=== PATIENT | female | born 1955 | race Caucasian/White ===

== ENCOUNTER 2017-06-22 12:03 | Emergency (ER) | payer MEDICARE, OTHER ==
[~2017-06-22] VITALS: Ht 162.6 cm; Wt 105.0 kg
[~2017-06-22 12:03] MED LIST: ACET-2047 PO; ATEN50TA PO; ATOR10TA65 PO; BISA10SU58 PR; CEPASTAT MT; CHOL2000 PO; CLOT30CR24 TOP; CYCL-319 PO; DILT60CA PO; DOCU-144 PO; DULO60CA6 PO; FER325 PO; FOLI-49 PO; FURO40TA4 PO; HYDR-3012 PO; LANT3I SC; LEVO300T5 PO; LIDO30JE5 TOP; LORA-441 PO; MAGN400O4 PO; NOVO3I SC; OMEP20CA16 PO; OXYC-284 PO; OXYC5CAP17 PO; TOPI-25 PO; TRAM-40 PO; UDROBDM PO
[2017-06-22 12:07] VITALS: Ht 162.6 cm; Wt 105.0 kg
[2017-06-22] MEDS ORDERED: GRIS500T6 PO (12:49)
--- NOTE | 2017-06-22 13:22 | ERD ---
ER Documentation Chief Complaint Date/Time DATE: 06/22/17 TIME: 13:14 Chief Complaint rash/fungal infection x 4 days HPI 62-year-old female coming in complaining of rash in groin area 2 days. Patient was discharged 2 days ago from a nursing facility after 1 year of wound care treatment. Patient states she had a wound on her foot which has been corrected. Patient is currently living in independent care. Patient is using nystatin cream on rash within groin. Feels that rash is worsening as she does not have warm water at the facility she is living and is unable to cleanse. Patient denies fever. Denies abdominal pain. ROS All systems reviewed and are negative except as per history of present illness. Medications Home Meds Active Scripts Griseofulvin,microsize (Griseofulvin) 500 Mg Tablet, 1000 MG PO DAILY for 28 Days, #28 TAB Prov:CHYNA MANCERA PA-C 06/22/17 Clotrimazole* (Clotrimazole* AF) 1% - 30 Gm Cream.gm., 1 APPLIC TOP BID for 7 Days, TUB Prov:SHANNON ZAFAR MD 10/15/15 Reported Medications Cholecalciferol* (Vitamin D3*) 2,000 Unit Cap, 2000 UNIT PO DAILY, CAP 10/15/15 Tramadol Hcl* (Ultram*) 50 Mg Tablet, 50 MG PO Q8 Y for PAIN, TAB 10/15/15 Topiramate* (Topiramate*) 100 Mg Tablet, 100 MG PO QHS, TAB 10/15/15 Throat Lozenges* (Cepastat*) 9 Venancio Lozenge, 1 LOZENGE MT Q4 Y, LOZENGE 10/15/15 Guaifenesin-Dextromethorphan* (Robitussin* DM) 100MG/10MG/5ML Syrup, 10 ML PO Q4H Y for COUGH, ML 10/15/15 Oxycodone Hcl-Acetaminophen* (Percocet*) 10-325 Mg Tablet, 1 TAB PO Q4H Y for SEVERE PAIN LEVEL 7-10, TAB 10/15/15 Oxycodone Hcl* (IR) (Oxycodone Hcl*) 5 Mg Capsule, 10 MG PO Q12 Y for PAIN, CAP 10/15/15 Insulin Aspart* (Novolog Insulin Pen*) 100 Unit/Ml Soln, 0 SC .SLIDING SCALE ACHS, EA 10/15/15 Magnesium Hydroxide* (Milk Of Magnesia*) 400 Mg/5 Ml Oral.susp, 30 ML PO Q24H Y for CONSTIPATION, ML 10/15/15 Lidocaine 2% Jelly* (Xylocaine 2% Jelly*) 1 Applic Jel, 1 APPLIC TOP Q12, TUB 10/15/15 Levothyroxine Sodium* (Levothyroxine Sodium*) 300 Mcg Tablet, 300 MCG PO AC BREAKFAST, TAB 10/15/15 Furosemide* (Furosemide*) 40 Mg Tablet, 40 MG PO BID, TAB 10/15/15 Cyclobenzaprine Hcl* (Cyclobenzaprine Hcl*) 10 Mg Tablet, 10 MG PO TID Y for MUSCLE SPASMS, TAB 10/15/15 Insulin Glargine* (Lantus*) 100 Unit/Ml Soln, 60 UNIT SC HS, EA 07/31/14 Omeprazole* (Omeprazole*) 20 Mg Capsule.dr, 20 MG PO DAILY, CAP 07/31/14 Hydroxyzine Hcl* (Hydroxyzine Hcl*) 50 Mg Tablet, 50 MG PO Q8, TAB 07/31/14 Ferrous Sulfate* (Ferrous Sulfate*) 325 Mg Tabec, 325 MG PO DAILY, TAB 07/31/14 Bisacodyl* (Dulcolax*) 10 Mg/Supp.rect Supp.rect, 10 MG NJ Q24H Y for CONSTIPATION, SUPP.RECT 07/31/14 Docusate Sodium* (Colace*) 100 Mg Capsule, 100 MG PO DAILY, CAP 07/31/14 Diltiazem Hcl (Diltiazem Er) 60 Mg Cap.sr.12h, 30 MG PO Q8 HOLD FOR SBP LESS THAN 110 07/31/14 Lorazepam* (Ativan*) 0.5 Mg Tablet, 0.5 MG PO Q8 Y for ANXIETY, TAB 07/31/14 Atenolol* (Atenolol*) 50 Mg Tablet, 50 MG PO BID, TAB HOLD IF SBP IS LESS THAN 110 07/31/14 Acetaminophen* (Acetaminophen*) 650 Mg Tablet, 650 MG PO Q4H Y for PAIN AND OR ELEVATED TEMP, TAB 07/31/14 Duloxetine Hcl* (Cymbalta*) 60 Mg Capsule.dr, 60 MG PO BID 03/27/14 Atorvastatin (Atorvastatin) 10 Mg Tablet, 10 MG PO DAILY, TAB 03/27/14 Folic Acid* (Folic Acid*) 1 Mg Tablet, 1 MG PO DAILY, TAB 03/27/14 Allergies Allergies: Coded Allergies: methotrexate (Verified Allergy, Intermediate, skin peels, 06/22/17) PMhx/Soc History of Surgery: Yes (right hip implant;) Anesthesia Reaction: No Hx Neurological Disorder: Yes (neuropathy) Hx Respiratory Disorders: Yes (pna, bronchitis;) Hx Cardiac Disorders: Yes (htn;) Hx Psychiatric Problems: No Hx Miscellaneous Medical Probl: Yes Hx Alcohol Use: No Hx Substance Use: No Hx Tobacco Use: No Smoking Status: Never smoker Physical Exam Vitals Vital Signs Date Time Temp Pulse Resp B/P Pulse Ox O2 Delivery O2 Flow Rate FiO2 06/22/17 12:07 99.2 82 20 148/63 97 Physical Exam Resp: Clear to auscultation bilaterally Cardio: Regular rate and rhythm, no murmurs Abd: Soft, non tender, non distended. Normal bowel sounds Skin: Large spread red beefy irregular border rash within groin. No induration. No lymphatic streaking. No purulent discharge. Superficial. No bleeding. Procedures/MDM ER Course: Wound cleaned in the ER. dried and dressing applied. MDM: 62-year-old female coming in complaining with rash to groin area. I have low suspicion for necrotizing fasciitis. Vital signs are stable and rash is indicative of fungal infection with beefy red edges and irregular edges. There is no degloving of the skin. I have a suspicion for cellulitic infection. There is no induration or purulence felt under the skin. Patient's vital signs are stable. A low suspicion for lymphatic infection as there is no lymphatic streaking. Patient is nontoxic appearing. A low suspicion for sepsis. Patient 's rash appears to be fungal in nature and she will be discharged with oral medication, as she is only using topical medications at this time. I recommended patient to return to the ER if symptoms change or worsen. I also recommended patient have close follow-up with primary doctor in 1-2 days. Departure Diagnosis: Primary Impression: Tinea corporis Condition: Stable Patient Instructions: Tinea Corporis Additional Instructions: FOLLOW UP WITH YOUR PRIMARY CARE PHYSICIAN TOMORROW.Return to this facility if you are not improving as expected. CHYNA MANCERA PA-C Jun 22, 2017 13:22
== END 2017-06-22 13:05 | disposition home or self-care (01) ==
LOC: FTE 12:03
DX: B35.4 Tinea corporis (principal); I10 Essential (primary) hypertension; E11.9 Type 2 diabetes mellitus without complications; Z96.641 Presence of right artificial hip joint; Z79.4 Long term (current) use of insulin
CPT/HCPCS: 99283

== ENCOUNTER 2017-09-24 12:40 | Emergency (ER) | END 2017-09-24 15:08 | disposition home or self-care (01) | DX: M25.561 Pain in right knee (principal); E11.9 Type 2 diabetes mellitus without complications; I10 Essential (primary) hypertension; Z79.4 Long term (current) use of insulin ==

== ENCOUNTER 2017-12-16 18:05 | Emergency (ER) | END 2017-12-17 03:33 | disposition home or self-care (01) ==

== ENCOUNTER 2017-12-24 16:18 | Emergency (ER) | END 2017-12-25 01:38 | disposition home or self-care (01) ==

== ENCOUNTER 2019-02-19 13:27 | Emergency (ER) | payer MEDICARE ==
[~2019-02-19] VITALS: Ht 162.6 cm; Wt 88.6 kg
[~2019-02-19 13:27] MED LIST changes: +ASPI-535 PO; -ATEN50TA PO; -BISA10SU58 PR; -CHOL2000 PO; +CIPR500T4 PO; -CLOT30CR24 TOP; -CYCL-319 PO; -DILT60CA PO; +FAMO40TA5 PO; -FER325 PO; -FURO40TA4 PO; -HYDR-3012 PO; +HYDR-4011 PO; +MAGN400O19 PO; -MAGN400O4 PO; -OMEP20CA16 PO; -OXYC-284 PO; -OXYC5CAP17 PO; -TOPI-25 PO; +TOPI100T11 PO; -TRAM-40 PO; +TRAM50TA2 PO; -UDROBDM PO
[2019-02-19 13:35] VITALS: Ht 162.6 cm; Wt 88.6 kg
[2019-02-19] MEDS ORDERED: ACETAMINOPHEN 500 MG TAB PO STA (14:34)
[2019-02-19] MEDS ORDERED: PHEN-538 PO (14:41)
[2019-02-19] MEDS ORDERED: CEPH-443 PO (14:41)
--- NOTE | 2019-02-19 14:46 | ERD ---
ER Documentation Chief Complaint Chief Complaint c/o urinary frequency and unable to hold urine HPI 63-year-old female presents with urinary frequency and urge incontinence for the last 3 days. She denies fevers, vomiting. She has chronic left abdominal wall pain due to incisional hernia for last 2 years. She had unspecified surgery 2 years ago for what she says is a "split" in her stomach. She is scheduled for evaluation for surgery with her primary doctor and general surgeon. ROS All systems reviewed and are negative except as per history of present illness. Medications Home Meds Active Scripts Phenazopyridine Hcl* (Pyridium*) 200 Mg Tab, 200 MG PO TID PRN for URINARY PAIN, #6 TAB Prov:DEANN JIMENEZ MD 02/19/19 Cephalexin* (Keflex*) 500 Mg Capsule, 500 MG PO QID for 5 Days, CAP Prov:DEANN JIMENEZ MD 02/19/19 Hydrocodone/Acetaminophen ([place] 5-325 Tablet) 1 Each Tablet, 1 EACH PO Q6, #14 TAB Prov:TIM MELARA DO 12/25/17 Tramadol HCl (Tramadol HCl) 50 Mg Tablet, 50 MG PO Q6 PRN for PAIN, #10 TAB Prov:JESSA ROWLAND MD 12/17/17 Ciprofloxacin Hcl* (Ciprofloxacin Hcl*) 500 Mg Tablet, 500 MG PO BID for 7 Days, TAB Prov:JESSA ROWLAND MD 12/17/17 Reported Medications Famotidine* (Famotidine*) 40 Mg Tablet, 40 MG PO DAILY, #60 TAB 12/17/17 Aspirin Ec (Aspir 81) 81 Mg Tablet.dr, 81 MG PO DAILY, #30 TAB 12/17/17 Topiramate* (Topiramate*) 100 Mg Tablet, 100 MG PO QHS, TAB 10/15/15 Throat Lozenges* (Cepastat*) 9 Venancio Lozenge, 1 LOZENGE MT Q4 PRN, LOZENGE 10/15/15 Insulin Aspart* (Novolog Insulin Pen*) 100 Unit/Ml Soln, 0 SC .SLIDING SCALE ACHS, EA 10/15/15 Magnesium Hydroxide* (Milk Of Magnesia*) 400 Mg/5 Ml Oral.susp, 30 ML PO Q24H PRN for CONSTIPATION, ML 10/15/15 Lidocaine 2% Jelly* (Xylocaine 2% Jelly*) 1 Applic Jel, 1 APPLIC TOP Q12, TUB 10/15/15 Levothyroxine Sodium* (Levothyroxine Sodium*) 300 Mcg Tablet, 300 MCG PO AC BREAKFAST, TAB 10/15/15 Insulin Glargine* (Lantus*) 100 Unit/Ml Soln, 32 UNIT SC HS, EA 07/31/14 Docusate Sodium* (Colace*) 100 Mg Capsule, 100 MG PO DAILY, CAP 07/31/14 Lorazepam* (Ativan*) 0.5 Mg Tablet, 0.5 MG PO Q8 PRN for ANXIETY, TAB 07/31/14 Acetaminophen* (Acetaminophen*) 650 Mg Tablet, 650 MG PO Q4H PRN for PAIN AND OR ELEVATED TEMP, TAB 07/31/14 Duloxetine Hcl* (Cymbalta*) 60 Mg Capsule.dr, 60 MG PO BID 03/27/14 Atorvastatin (Atorvastatin) 10 Mg Tablet, 10 MG PO DAILY, TAB 03/27/14 Folic Acid* (Folic Acid*) 1 Mg Tablet, 1 MG PO DAILY, TAB 03/27/14 Allergies Allergies: Coded Allergies: methotrexate (Unverified Allergy, Intermediate, skin peels, 12/17/17) pregabalin (Unverified Allergy, Intermediate, blurry vission; sob, 12/17/17) PMhx/Soc History of Surgery: Yes (colon, lian, RLE ) Anesthesia Reaction: No Hx Neurological Disorder: Yes (BLE neuropathy) Hx Respiratory Disorders: Yes (pna, bronchitis;) Hx Cardiac Disorders: Yes (SC, HTN) Hx Psychiatric Problems: No Hx Miscellaneous Medical Probl: Yes (DM II, hypothyroidism, nec fasc, ) Hx Alcohol Use: Yes (18 years ago) Hx Substance Use: Yes (18 years ago) Hx Tobacco Use: Yes (18 years ago) FmHx Family History: No diabetes, No coronary disease, No other Physical Exam Vitals Vital Signs Date Temp Pulse Resp B/P (MAP) Pulse Ox O2 O2 Flow FiO2 Time Delivery Rate 02/19/19 99.5 109 20 128/75 94 13:35 (92) Physical Exam Const: No acute distress Head: Atraumatic Eyes: Normal Conjunctiva ENT: Normal External Ears, Nose and Mouth. Neck: Full range of motion. No meningismus. Resp: Clear to auscultation bilaterally Cardio: Regular rate and rhythm, no murmurs Abd: Soft, non tender, non distended. Normal bowel sounds. Patient has an incisional hernia in the left abdomen without warmth, erythema, tenderness or masses. It is spontaneously reducible without signs of incarceration or circulation. Skin: No petechiae or rashes Back: No midline or flank tenderness Ext: No cyanosis, or edema Neur: Awake and alert Psych: Normal Mood and Affect Results 24 hrs Laboratory Tests Test 02/19/19 14:15 Urine Color YELLOW Urine Clarity SLIGHTLY CLOUDY Urine pH 5.0 Urine Specific [place] 1.024 Urine Ketones 1+ mg/dL Urine Nitrite NEGATIVE mg/dL Urine Bilirubin NEGATIVE mg/dL Urine Urobilinogen 1+ mg/dL Urine Leukocyte Esterase 3+ Lori/ul Urine Microscopic RBC 3 /HPF Urine Microscopic WBC 79 /HPF Urine Squamous Epithelial Cells FEW /HPF Urine Hemoglobin 1+ mg/dL Urine Glucose 3+ mg/dL Urine Total Protein 1+ mg/dl Current Medications Medications Dose Sig/Shavon Start Time Status Last (Trade) Ordered Route PRN Stop Time Admin Dose Reason Admin Cephalexin 500 mg ONCE ONCE 02/19/19 (Keflex) PO 15:00 02/19/19 15:01 200 mg ONCE ONCE 02/19/19 Phenazopyridi PO 15:00 02/19/19 ne HCl 15:01 (Pyridium) 500 mg ONCE STAT 02/19/19 DC Acetaminophen PO 14:34 02/19/19 (Tylenol 14:37 Tab) Procedures/MDM Shows leukocyte esterase, white blood cells, ketones and glucose. Patient does not has signs and symptoms to suggest ketoacidosis. Departure Diagnosis: Primary Impression: Genitourinary symptoms Additional Impression: UTI (urinary tract infection) Urinary tract infection type: acute cystitis Hematuria presence: without hematuria Qualified Codes: N30.00 - Acute cystitis without hematuria Condition: Stable Patient Instructions: Urinary Tract Infections in Women Referrals: NINI MORGAN MD (PCP) Additional Instructions: Urine shows signs of infection, likely cause of symptoms. Recheck for fevers, vomiting, worsening abdominal pain, new worsening symptoms. See surgeon and primary doctor as scheduled. DEANN JIMENEZ MD Feb 19, 2019 14:46
[2019-02-19] MEDS ORDERED: CEPHALEXIN 500 MG CAP PO ONE (15:00)
[2019-02-19] MEDS ORDERED: PHENAZOPYRIDINE 100 MG TAB PO ONE (15:00)
[2019-02-19] MEDS ORDERED: SOD CHLORIDE 0.9% 1,000 ML IV STA (15:05)
[2019-02-19] MEDS ORDERED: CEFTRIAXONE 1 GM/50 ML (PMX) 50 ML IVPB STA (15:05)
[2019-02-19] MEDS ORDERED: INSULIN LISPRO 100 UNIT/ML VIAL SC ONE (15:30)
[2019-02-19] MEDS ORDERED: SOD CHLORIDE 0.9% 1,000 ML IV ONE (18:06)
[2019-02-19] MEDS ORDERED: HYDROCODONE/APAP (5/325) TAB PO ONE (18:30)
[2019-02-19 20:08] VITALS: BP 169/72; PULSE 78; RESP 18
== END 2019-02-19 20:10 | disposition home or self-care (01) ==
LOC: FTE 13:27
DX: R39.89 Other symptoms and signs involving the genitourinary system (principal); N30.00 Acute cystitis without hematuria; E11.9 Type 2 diabetes mellitus without complications; I10 Essential (primary) hypertension; I25.2 Old myocardial infarction; E03.9 Hypothyroidism, unspecified; Z79.4 Long term (current) use of insulin; Z87.891 Personal history of nicotine dependence; Z79.82 Long term (current) use of aspirin
CPT/HCPCS: 36415; 80053; 81001; 82962; 85025; 87086; 96361; 96365; 96372; 99284; J0696; J1815; J7030

== ENCOUNTER 2019-04-19 05:41 | Inpatient (IN) | payer MEDICARE ==
[2019-04-19] VITALS (42 sets, daily range): BP systolic 87–154; BP diastolic 39–88; PULSE 56–75; RESP 11–24; Ht 152.4 cm; Wt 84.3 kg
[~2019-04-19] VITALS: Ht 152.4 cm; Wt 84.3 kg
[~2019-04-19 05:41] MED LIST changes: +CEPH-443 PO; +PHEN-538 PO
[2019-04-19] MEDS ORDERED: SOD CHLORIDE 0.9% 1,000 ML IV SCH (06:00)
[2019-04-19] MEDS ORDERED: INSU100I33 SC (07:11)
[2019-04-19] MEDS ORDERED: METO-448 PO (07:14)
[2019-04-19] MEDS ORDERED: OXYB5TAB22 PO (07:14)
[2019-04-19] MEDS ORDERED: FAMO40TA5 PO (07:15)
[2019-04-19] MEDS ORDERED: ATOR10TA65 PO (07:16)
[2019-04-19] MEDS ORDERED: LEVO200T45 PO (07:16)
[2019-04-19] MEDS ORDERED: TRAZ150T65 PO (07:17)
[2019-04-19] MEDS ORDERED: TOPI100T11 PO (07:17)
[2019-04-19] MEDS ORDERED: DULO60CA6 PO (07:18)
[2019-04-19] MEDS ORDERED: METF500T3 PO (07:18)
[2019-04-19] MEDS ORDERED: FENTAnyl 50 MCG/ML VIAL ONE ×2 (07:40→08:11)
[2019-04-19] MEDS ORDERED: MIDAZOLAM 1 MG/ML 2 ML INJ ONE ×2 (07:41→08:12)
[2019-04-19] MEDS ORDERED: INSULIN REGULAR, HUMAN 100 UNIT/1 ML 3ML VIAL SC SCH (08:00)
[2019-04-19] MEDS ORDERED: BIVALIRUDIN 250MG /NS 50 ML 50 ML IVPB ONE (08:08)
[2019-04-19] MEDS ORDERED: VERAPAMIL 5 MG INJ ONE (08:19)
[2019-04-19] MEDS ORDERED: NITROGLYCERIN (IC) 100 MCG/ML INJ ONE (08:19)
[2019-04-19] MEDS ORDERED: CLOPIDOGREL 300 MG TAB ONE (08:40)
[2019-04-19] MEDS ORDERED: ASPIRIN 81 MG TAB ONE (08:41)
[2019-04-19] MEDS ORDERED: LIDOCAINE 1% (MDV) 20 ML INJ ONE (08:49)
[2019-04-19] MEDS ORDERED: IODIXANOL LOCM 100 ML BTL ONE (08:53)
[2019-04-19] MEDS: METOPROLOL 25 MG TAB PO SCH ×2 (09:00→20:37)
[2019-04-19] MEDS: CLOPIDOGREL 75 MG TAB PO SCH (09:00)
[2019-04-19] MEDS: ASPIRIN (EC) 81 MG TAB PO SCH (09:00)
--- NOTE | 2019-04-19 09:05 | OPR ---
Date/Time of Note Date/Time of Note DATE: 04/19/19 TIME: 08:58 Operative Report Procedure Date: Apr 19, 2019 Preoperative Diagnosis angina. markedly abnormal stress test showing large LAD ischemia Postoperative Diagnosis SAME Operation/Procedure Performed PCI LAD Surgeon see signature line Secretary Receptionist Justin Anesthesia Type: moderate sedation Estimated Blood Loss: minimal Transfusion none Specimen none Grafts/Implants none Complications none Procedure Description Transmission Tester: Mckenzie Martin MD Indication: 63-year-old female with multiple complicated medical history who was recommended to undergo diagnostic angiography and possible PCI for recurrent chest pain markedly abnormal stress test showing LAD ischemia. Patient also needed to be evaluated for cardiovascular preop evaluation for hernia surgery Procure performed: #1 left heart catheterization and selective right and left coronary angiogram #2 Right femoral angiogram and closure using a Perclose device 3. Successful PTCA and stenting of mid into the proximal left anterior descending artery using a 2.5 x 60 mm Synergy drug-eluting stent and a 2.25 x 20 mm Synergy drug-eluting stent in the mid to distal LAD. 4. Moderate sedation for more than 60 minutes Findings: 1. Left main: is normal and birfurcates to LAD & LCX. 2. LAD: has 70 % stenosis at the distal portion of proximal LAD, and 95 % stenosis at the very proximal portion of mid LAD. Mid LAD becomes very small. There is a 80% calcified lesion noted after the initial lesion. After successful PCI of this lesion no significant residual stenosis left. 3. Left circumflex artery: is nondominant. it has 40 % calcified distal stenosis 4. RCA: is large calcified and dominant. it has 30 % mid stenosis and 40% distal stenosis. PDA is very large with about 50% stenosis. 5. LV: 124/8. Aortic pressure by pull back: 127/53 6. Right femoral angiogram shows patent common femoral artery, however proximal area of the right SFA appears to have heavily calcified 95% lesion Procedure in detail: Written informed consent with obtained after risks benefits and alternatives discussed with the patient in detail. risks including but not limited to risk of infection vascular complications, bleeding complications, IN stroke arrhythmia renal failure at even were discussed with the patient in detail. Patient was brought into the cardiac laboratory miller and placed in supine position. Right and left groin area was prepped and draped in regular sterile fashion and then he was in anesthetized using 1% lidocaine. Right femoral artery was cannulated and using modified seldinger technique a 5 Gu[place] sheath was placed in the femoral artery. Femoral angiogram was performed JL4 guiding catheter was advanced to engage the left main coronary artery angiographic view was obtained. JR4 catheter was advanced and engaged into the right coronary artery and angiographic view was obtained. Then a JR4 was advanced to engage the left ventricle hemodynamics as recorded by pullback aortic pressure was measured. At this time we decided to perform PCI of the left anterior descending artery. She was removed and Perclose was used to preclosed. A 6 [place] sheath was placed right femoral artery. A JL 3-/2 guiding catheter was advanced to engage the left main coronary artery. MW wire was used and advanced across the lesion and placed distal to the lesion. I used a 2.5 x 12 balloon which was placed across the lesion and predilated the vessel. Then I used a 2.25 x 20 mm Synergy drug-eluting stent which was placed across the lesion into the distal portion of the mid LAD and deployed at 12 Ricarda. Then another 2.5 x 60 mm Synergy drug- eluting stent was placed at the proximal portion of the mid LAD into the distal portion of the proximal LAD. It was deployed at 14 ricarda. Finally a 2.75 x 8 mm noncompliant balloon was used and postdilated the stent and up to 20 Ricarda. Final angiographic view was obtained which showed MIL-3 flow no evidence of dissection and no significant residual stenosis at the site of the stent. 2 Perclose was successfully deployed. Patient tolerated the procedure well with no complication. Patient is to be transferred to recovery room in stable condition. contrast used: 70 cc Visipaque Conclusions: Successful PTCA stenting of the left anterior descending artery from 95% stenosis to no significant residual stenosis using a 2.25 x 20 and 2.5 x 60 mm Synergy drug-eluting stent. Recommendations: Aggressive medical therapy. aspirin indefinitely dual antiplatlet therapy with aspirin and Plavix MCKENZIE MARTIN MD [facility] MCKENZIE MARTIN MD Apr 19, 2019 09:04
[2019-04-19] MEDS ORDERED: DEXTROSE 50% 50 ML SYRINGE IV PRN ×2 (09:30)
[2019-04-19] MEDS ORDERED: GLUCAGON 1 MG INJ IM PRN (09:30)
[2019-04-19] MEDS ORDERED: GLUCOSE GEL 15 GRAM TUBE PO PRN ×2 (09:30)
[2019-04-19] MEDS ORDERED: GLUCOSE GEL 15 GRAM TUBE BUCCAL PRN (09:30)
[2019-04-19] MEDS: morphine 2 MG INJ IV PRN ×4 (09:38→20:30)
[2019-04-19] MEDS: SOD CHLORIDE 0.9% 1,000 ML IV SCH ×2 (09:38→11:50)
[2019-04-19] MEDS: TOPIRAMATE 100 MG TAB PO SCH (11:52)
[2019-04-19] MEDS: DULOXETINE 30 MG CAP DR PO SCH (11:52)
[2019-04-19] MEDS: OXYBUTYNIN (XL) 5 MG TAB PO SCH (11:53)
[2019-04-19] MEDS: INSULIN ASPART [NOVOLOG] 3 ML PEN SC SCH ×3 (12:02→20:47)
--- NOTE | 2019-04-19 16:21 | HP ---
DATE OF ADMISSION: 04/19/2019 REASON FOR ADMISSION: Coronary artery disease, status post PCI of the LAD. HISTORY OF PRESENT ILLNESS: The patient is a 63-year-old obese female with history of diab etes mellitus, atrial flutter, CKD, anemia, hypothyroidism, abdominal hernia, anxiety disorder, const ipation, overactive bladder, insomnia, peripheral vascular disease, dyslipidemia, hyperuricemia, and osteoarthritis who has been battling a lower abdominal hernia, which is very bothersome to her. She was recommended to lose weight prior to possible surgery. Upon evaluation in my office, referred to Dr. Martin for cardiac clearance due to her multiple medical issues. The patient was possible found to have a positive stress test and underwent today a cardiac angiogram by Dr. Mckenzie Martin. The find ings revealed left main is normal, LAD had 70% stenosis in the distal portion of the proximal LAD, a 95% stenosis of the proximal portion of the mid-LAD, and the mid-LAD becomes very small. There is 80 % calcific lesion noted after the initial lesion. A PCI was done. Other vessels: Left circumflex a rtery is nondominant, 40% calcified distal stenosis. RCA is large, calcified, dominant, has 30% mid stenosis, 40% distal stenosis. The PDA is very large, with about 50% stenosis. Right femoral angiog filiberto showed patent common femoral artery of approximately ____. The right SFA appears to have heavily calcified 95% lesion. Ultimately, the patient underwent PCI of the LAD. The patient tolerated the procedure well, now transferred to the recovery room. The patient will be admitted overnight to the intensive care unit for monitoring. This was done via right femoral approach. Currently, sugars are slightly high in the 300s, the patient overall doing well. PAST MEDICAL HISTORY: Includes coronary artery disease, diabetes mellitus, hypertension, dyslipidemi a, hypothyroidism, anemia, CKD, history of MRSA pneumonia, diabetes mellitus, atrial flutter, SURGICAL HISTORY: None. ALLERGIES: METHOTREXATE AND PREGABALIN. FAMILY HISTORY: Unknown. SOCIAL HISTORY: No history of tobacco, alcohol, or IV drug use. MEDICATIONS: The patient's home medications include: 1. Atorvastatin 10 mg at bedtime. 2. Metoprolol 25 b.i.d. 3. Duloxetine 60 daily. 4. Topiramate 100 daily. 5. Trazodone 150 at bedtime. 6. Pepcid 40 at bedtime. 7. Insulin Lantus as directed. 8. Synthroid or Levoxyl 200 mcg daily. 9. Metformin 500 b.i.d. 10. Ditropan XL 5 mg daily. The list that I have actually from my office are as follows: 1. Colace 100 b.i.d. 2. Metoprolol tartrate 25 b.i.d. 3. Oxybutynin 5 mg b.i.d. 4. Trazodone 100 at bedtime. 5. Folic acid 1 mg daily. 6. Lasix 20 mg daily. 7. Myrbetriq 50 daily. 8. Atorvastatin 10 mg at bedtime. 9. Allopurinol 100 mg daily. 10. Pepcid 40 daily. 11. Vitamin D3 5000 daily. 12. Cymbalta 60 mg daily. 13. Metformin 500 b.i.d. 14. Aspirin 81 mg daily. 15. Topiramate 100 at bedtime. 16. Meloxicam 7.5 daily. 17. Synthroid 200 mcg daily. PHYSICAL EXAMINATION: VITAL SIGNS: Temperature is 98.6, pulse is 56, respirations 17, blood pressure 109/49, saturation 10 0%. GENERAL: No acute distress. HEENT: Normocephalic, atraumatic, pale. CARDIOVASCULAR: S1, S2, regular rate. LUNGS: Clear. ABDOMEN: Soft. She has a midabdominal scar and a hernia protruding in the left lower abdomen. Righ t groin area: Appears to be in no significant hematoma. That is where she had her angio site. EXTREMITIES: There is no clubbing, cyanosis, or edema. The patient is moving all extremities. LABORATORY DATA: White count is 9.8, hemoglobin 13.9, hematocrit 42, platelet count of 162. Neutrop hils 78%, lymphocytes 13%. Chemistry: Sodium is 139, potassium 4.9, chloride 104, bicarbonate 25, BUN is 30, creatinine 1.54, and glucose of 357. Last glucose levels 330, 376 and 376. Troponin this morning was slightly at 0.128. Triglycerides 194. Cholesterol 142, HDL is 37, LDL 66. INR is 0.92 . ASSESSMENT AND PLAN: This is a 63-year-old morbidly obese female, has been losing weight s o she can be prepared for the abdominal hernia repair. Also, history of diabetes mellitus, hypothyro idism, hypertension, chronic kidney disease, anemia, was found to have a positive stress test, status post percutaneous coronary intervention of the left anterior descending. 1. Respiratory: Oxygen support as needed. 2. Cardiovascular: Status post percutaneous coronary intervention of the left anterior descending. The patient to be placed on Lipitor, aspirin, and Plavix. Continue beta blockers, pain control. Mo nitor for any chest pain. Monitor right groin. Monitor closely in the intensive care unit status po st percutaneous coronary intervention. 3. Gastrointestinal: Continue Protonix for gastrointestinal prophylaxis. 4. Hypothyroidism: Continue Synthroid 200 mcg daily. 5. Continue Pepcid for gastrointestinal prophylaxis. 6. Insomnia. Continue trazodone. 7. Diabetes mellitus, high glucose levels, postoperative stress: Insulin will be provided. I will put her also on Lantus at night. 8. Monitor her closely in the intensive care unit, and then out of bed activity when cleared by card [email or web address]. Disposition hopefully tomorrow. We will follow. Dictated By: NINI PRIEST/JENNY Conf#: [id number] DID#: [id number] CC: MCKENZIE MARTIN MD;*EndCC*
--- NOTE | 2019-04-19 16:35 | RADRPT ---
Vent Rate: 61 bpm RR Interval: 980 msec [place] Interval: 144 msec QRS Duration: 132 msec QT Interval: 476 msec QTC Interval: 481 msec P-R-T [place]: -20 - -58 - -2 degrees Sinus rhythm...normal P axis, V-rate 50- 99 RBBB and LAFB...QRSd >120mS, axis(-40,240) Probable left ventricular hypertrophy...(RaVL+SV3)xQRSd >300 Electronically Signed By: Jose Enrique Mcgrath
[2019-04-19] MEDS ORDERED: INSULIN GLARGINE [LANTus] (100 UNITS/ML) SYG SC SCH (20:00)
[2019-04-19] MEDS: FAMOTIDINE 20 MG TAB PO SCH (20:36)
[2019-04-19] MEDS: ATORVASTATIN 10 MG TAB PO SCH (20:36)
[2019-04-19] MEDS: traZODone 50 MG TAB PO SCH (20:36)
[2019-04-20] VITALS (12 sets, daily range): BP systolic 111–143; BP diastolic 56–73; PULSE 40–63; RESP 16–18
[2019-04-20] MEDS: HYDROCODONE/APAP (5/325) TAB PO PRN ×2 (00:28→04:49)
[2019-04-20] MEDS: LEVOTHYROXINE 100 MCG TAB PO SCH (06:18)
[2019-04-20] MEDS: DULOXETINE 30 MG CAP DR PO SCH (08:01)
[2019-04-20] MEDS: CLOPIDOGREL 75 MG TAB PO SCH (08:01)
[2019-04-20] MEDS: ASPIRIN (EC) 81 MG TAB PO SCH (08:01)
[2019-04-20] MEDS: TOPIRAMATE 100 MG TAB PO SCH (08:01)
[2019-04-20] MEDS: OXYBUTYNIN (XL) 5 MG TAB PO SCH (08:02)
[2019-04-20] MEDS: METOPROLOL 25 MG TAB PO SCH ×2 (08:03→21:00)
--- NOTE | 2019-04-20 08:14 | CONS ---
Consult Date/Type/Reason Admit Date/Time Apr 19, 2019 at 08:52 Initial Consult Date Type of Consultation: cv Date/Time of Note DATE: 04/20/19 TIME: 08:11 Subjective Interventional cardiology follow-up progress note Subjective Case discussed with the staff telemetry was reviewed patient remains sinus rhythm intermittently with marked sinus bradycardia. No syncope presyncope No chest pain or pressure Mild groin discomfort/tenderness. She was able to walk though with no sign ificant discomfort Objective: General: Obese female no acute distress HEENT: NC/AT. pupils are equal. round. NECK: NO JVD. no stridor. CV: RRR. systolic murmur; no gallop or rubs. PULM: no wheezing or rhonchi. GI: Obese NT, ND, no rebound or guarding Extremity: trace B/L LE edema. no clubbing. neuro: awake and alert, OX3. Psych: calm and pleasant rectal: deferred Vascular: Right femoral no bleeding or hematoma. No bruit. Objective Vitals Vital Signs Date Temp Pulse Resp B/P (MAP) Pulse Ox O2 O2 Flow FiO2 Time Delivery Rate 04/20/19 97.8 47 18 120/72 99 07:20 (88) 04/19/19 Nasal 2.0 18:30 Cannula Intake and Output 04/19/19 04/19/19 04/20/19 1515:00 23:00 07:00 IntakeIntake Total 220 ml OutputOutput Total 550 ml BalanceBalance -330 ml Results/Medications Result Diagram: 04/20/19 0613 04/20/19 0613 Results 24 hrs Laboratory Tests Test 04/19/19 09:08 04/19/19 11:58 04/19/19 16:34 04/19/19 20:34 Bedside Glucose 376 H 330 H 187 238 H Test 04/20/19 06:13 04/20/19 08:00 White Blood Count 6.7 # Red Blood Count 4.01 L Hemoglobin 11.2 L Hematocrit 34.3 L Mean Corpuscular Volume 85.5 Mean Corpuscular 27.9 L Hemoglobin Mean Corpuscular 32.7 Hemoglobin Concent Red Cell Distribution 13.5 Width Platelet Count 146 Mean Platelet Volume 10.8 H Immature Granulocytes % 0.300 Neutrophils % 69.7 Lymphocytes % 18.4 Monocytes % 7.3 Eosinophils % 3.9 Basophils % 0.4 Nucleated Red Blood 0.0 Cells % Immature Granulocytes # 0.020 Neutrophils # 4.7 Lymphocytes # 1.2 Monocytes # 0.5 Eosinophils # 0.3 Basophils # 0.0 Nucleated Red Blood 0.0 Cells # Sodium Level 138 Potassium Level 4.1 Chloride Level 106 Carbon Dioxide Level 24 Anion Gap 8 Blood Urea Nitrogen 21 H Creatinine 1.17 H Est Glomerular Filtrat 47 L Rate mL/min Glucose Level 274 H Hemoglobin A1c 9.5 H Calcium Level 8.6 Magnesium Level 1.4 L Total Bilirubin 0.6 Direct Bilirubin 0.00 Indirect Bilirubin 0.6 Aspartate Amino 13 L Transf (AST/SGOT) Alanine 13 Aminotransferase (ALT/SG PT) Alkaline Phosphatase 54 Creatine Kinase 36 Total Protein 5.0 #L Albumin 3.1 #L Globulin 1.90 Albumin/Globulin Ratio 1.63 Bedside Glucose 315 H Home Meds Reported Medications Duloxetine Hcl* (Cymbalta*) 60 Mg Capsule.dr, 60 MG PO DAILY, CAP 04/19/19 Metformin Hcl* (Metformin Hcl* ER) 500 Mg Tab.sr.24h, 500 MG PO BID, #30 TAB 04/19/19 Trazodone Hcl* (Desyrel*) 150 Mg Tablet, 150 MG PO QHS, #30 TAB 04/19/19 Topiramate* (Topiramate*) 100 Mg Tablet, 100 MG PO DAILY, TAB 04/19/19 Atorvastatin Calcium (Atorvastatin Calcium) 10 Mg Tablet, 10 MG PO QHS, #30 TAB 04/19/19 Levothyroxine Sodium* (Levoxyl*) 200 Mcg Tablet, 200 MCG PO BEFORE BREAKFAST, #30 TAB 04/19/19 Famotidine* (Famotidine*) 40 Mg Tablet, 40 MG PO HS, #30 TAB 04/19/19 Oxybutynin Chloride* (Ditropan* XL) 5 Mg Tabsr, 5 MG PO DAILY, TAB.SA 04/19/19 Metoprolol Tartrate* (Lopressor*) 25 Mg Tab, 25 MG PO BID, #60 TAB 04/19/19 Insulin Glargine,Hum.rec.anlog (Basaglar Kwikpen U-100) 100 Unit/1 Ml Insuln.pen, 0 SC DAILY, EA PT NOT SURE 04/19/19 Discontinued Reported Medications Famotidine* (Famotidine*) 40 Mg Tablet, 40 MG PO DAILY, #60 TAB 12/17/17 Aspirin Ec (Aspir 81) 81 Mg Tablet.dr, 81 MG PO DAILY, #30 TAB 12/17/17 Topiramate* (Topiramate*) 100 Mg Tablet, 100 MG PO QHS, TAB 10/15/15 Throat Lozenges* (Cepastat*) 9 Venancio Lozenge, 1 LOZENGE MT Q4 PRN, LOZENGE 10/15/15 Insulin Aspart* (Novolog Insulin Pen*) 100 Unit/Ml Soln, 0 SC .SLIDING SCALE ACHS, EA 10/15/15 Magnesium Hydroxide* (Milk Of Magnesia*) 400 Mg/5 Ml Oral.susp, 30 ML PO Q24H PRN for CONSTIPATION, ML 10/15/15 Lidocaine 2% Jelly* (Xylocaine 2% Jelly*) 1 Applic Jel, 1 APPLIC TOP Q12, TUB 10/15/15 Levothyroxine Sodium* (Levothyroxine Sodium*) 300 Mcg Tablet, 300 MCG PO AC BREAKFAST, TAB 10/15/15 Insulin Glargine* (Lantus*) 100 Unit/Ml Soln, 32 UNIT SC HS, EA 07/31/14 Docusate Sodium* (Colace*) 100 Mg Capsule, 100 MG PO DAILY, CAP 07/31/14 Lorazepam* (Ativan*) 0.5 Mg Tablet, 0.5 MG PO Q8 PRN for ANXIETY, TAB 07/31/14 Acetaminophen* (Acetaminophen*) 650 Mg Tablet, 650 MG PO Q4H PRN for PAIN AND OR ELEVATED TEMP, TAB 07/31/14 Duloxetine Hcl* (Cymbalta*) 60 Mg Capsule.dr, 60 MG PO BID 03/27/14 Atorvastatin (Atorvastatin) 10 Mg Tablet, 10 MG PO DAILY, TAB 03/27/14 Folic Acid* (Folic Acid*) 1 Mg Tablet, 1 MG PO DAILY, TAB 03/27/14 Discontinued Scripts Phenazopyridine Hcl* (Pyridium*) 200 Mg Tab, 200 MG PO TID PRN for URINARY PAIN, #6 TAB Prov:DEANN JIMENEZ MD 02/19/19 Cephalexin* (Keflex*) 500 Mg Capsule, 500 MG PO QID for 5 Days, CAP Prov:DEANN JIMENEZ MD 02/19/19 Hydrocodone/Acetaminophen ([place] 5-325 Tablet) 1 Each Tablet, 1 EACH PO Q6, #14 TAB Prov:TIM MELARA DO 12/25/17 Tramadol HCl (Tramadol HCl) 50 Mg Tablet, 50 MG PO Q6 PRN for PAIN, #10 TAB Prov:JESSA ROWLAND MD 12/17/17 Ciprofloxacin Hcl* (Ciprofloxacin Hcl*) 500 Mg Tablet, 500 MG PO BID for 7 Days, TAB Prov:JESSA ROWLAND MD 12/17/17 Medications Current Medications Aspirin (Halfprin) 81 mg DAILY PO ; Start 04/19/19 at 09:00 Clopidogrel Bisulfate (plaVIX) 75 mg DAILY PO ; Start 04/19/19 at 09:00 Atorvastatin Calcium (Lipitor) 10 mg QHS PO Last administered on 04/19/19 20:36; Admin Dose 10 MG; Start 04/19/19 at 21:00 Duloxetine HCl (Cymbalta) 60 mg DAILY PO Last administered on 04/19/19 11:52; Admin Dose 60 MG; Start 04/19/19 at 09:00 Famotidine (Pepcid) 40 mg HS PO Last administered on 04/19/19 20:36; Admin Dose 40 MG; Start 04/19/19 at 21:00 Levothyroxine Sodium (Synthroid) 200 mcg BEFORE BREAKFAST PO Last administered on 04/20/19 06:18; Admin Dose 200 MCG; Start 04/20/19 at 07:00 Metoprolol Tartrate (Lopressor) 25 mg BID PO Last administered on 04/19/19 20:37; Admin Dose 25 MG; Start 04/19/19 at 09:00 Oxybutynin Chloride (Ditropan Xl) 5 mg DAILY PO Last administered on 04/19/19 11:53; Admin Dose 5 MG; Start 04/19/19 at 09:00 Topiramate (Topamax) 100 mg DAILY PO Last administered on 04/19/19 11:52; Admin Dose 100 MG; Start 04/19/19 at 09:00 Trazodone HCl (Desyrel) 150 mg QHS PO Last administered on 04/19/19 20:36; Admin Dose 150 MG; Start 04/19/19 at 21:00 Morphine Sulfate (morphine) 2 mg Q1H PRN IV SEVERE PAIN LEVEL 7-10 Last administered on 04/19/19at 20:30; Admin Dose 2 MG; Start 04/19/19 at 09:00 Insulin Aspart (Novolog Insulin Pen) NOVOLOG *MODERATE* ALGORITHM WITH MEALS BEDTIME SC Last administered on 04/19/19at 20:47; Admin Dose 2 UNIT; Start 04/19/19 at 12:00 Miscellaneous Information 1 ea NOTE XX ; Start 04/19/19 at 09:30 Glucose (Glutose) 15 gm Q15M PRN PO DECREASED GLUCOSE; Start 04/19/19 at 09:30 Glucose (Glutose) 22.5 gm Q15M PRN PO DECREASED GLUCOSE; Start 04/19/19 at 09:30 Dextrose (D50w Syringe) 25 ml Q15M PRN IV DECREASED GLUCOSE; Start 04/19/19 at 09:30 Dextrose (D50w Syringe) 50 ml Q15M PRN IV DECREASED GLUCOSE; Start 04/19/19 at 09:30 Glucagon (Glucagen) 1 mg Q15M PRN IM DECREASED GLUCOSE; Start 04/19/19 at 09:30 Glucose (Glutose) 15 gm Q15M PRN BUCCAL DECREASED GLUCOSE; Start 04/19/19 at 09:30 Insulin Glargine (Lantus) 30 units DAILY@2000 SC Last administered on 04/19/19at 20:46; Admin Dose 30 UNITS; Start 04/19/19 at 20:00 Acetaminophen/ Hydrocodone Bitart ([place] (5/325)) 1 tab Q4H PRN PO MODERATE PAIN LEVEL 4-6 Last administered on 04/20/19at 04:49; Admin Dose 1 TAB; Start 04/20/19 at 00:30 Magnesium Sulfate 100 ml @ 25 mls/hr ONCE ONCE IVPB ; Start 04/20/19 at 09:00; Stop 04/20/19 at 12:59 Assessment/Plan Hospital Course (Demo Recall) 1. Chest pain and coronary artery disease a marked abnormal stress test: Status post PCI of the LAD 04/19/2019 2. Hypertension 3. Diabetes 4. Dyslipidemia 5. Morbid obesity 6. Abdominal hernia cardiovascular preop evaluation Recommendation: Continue with aspirin and Plavix. Hold off on abdominal surgery noted the patient is on Plavix. Continue insulin for now. Metformin to resume tomorrow Renal function has improved. Beta-evelyn as tolerated. We replaced her magnesium today. DC planning this afternoon if okay with Dr. Rodriguez Thank you for his referral. We will continue to follow with you MCKENZIE CUEVA MD [facility] MCKENZIE CUEVA MD Apr 20, 2019 08:14
[2019-04-20] MEDS ORDERED: CLOP75TA28 PO (08:17)
[2019-04-20] MEDS: INSULIN ASPART [NOVOLOG] 3 ML PEN SC SCH ×5 (08:19→21:01)
[2019-04-20] MEDS ORDERED: CLOP75TA27 PO (08:44)
[2019-04-20] MEDS ORDERED: MAGNESIUM SULFATE 4 GM/100 ML 100 ML IVPB ONE (09:00)
[2019-04-20] MEDS: morphine 2 MG INJ IV PRN ×2 (12:27→20:11)
--- NOTE | 2019-04-20 14:45 | QN ---
Documentation Comment As Physician Advisor I have reviewed the chart and have determined that as of today, this patient continues to receive medically necessary care required for the diagnosis and treatment of illness or injury. There has been no unreasonable delay in the rendering of medically necessary services, and this medically necessary care requires a length of stay expected to be greater than two midnights. Additional information gained during the stay now suggests this patient should have been classified as an inpatient at the time of admission, and I will change the status to inpatient to reflect that medical judgment. Besides the notes from the medical providers, the following information was used in this determination: Coronary artery disease requiring PCI, comorbidities including diabetes mellitus, hypertension, dyslipidemia, hypothyroidism, anemia, CKD, history of MRSA pneumonia, , atrial flutter. Blood sugars are difficult to control and patient is requiring physical therapy evaluation and treatment for weakness. Please call me at [phone] with questions. JOSE MENSAH MD Apr 20, 2019 14:44
[2019-04-20] MEDS ORDERED: INSULIN GLARGINE [LANTus] (100 UNITS/ML) SYG SC SCH (20:00)
[2019-04-20] MEDS: traZODone 50 MG TAB PO SCH (20:16)
[2019-04-20] MEDS: ATORVASTATIN 10 MG TAB PO SCH (20:16)
[2019-04-20] MEDS: FAMOTIDINE 20 MG TAB PO SCH (20:16)
[2019-04-21] VITALS (13 sets, daily range): BP systolic 110–141; BP diastolic 49–69; PULSE 43–61; RESP 17–20
[2019-04-21] MEDS: morphine 2 MG INJ IV PRN ×3 (06:15→21:46)
[2019-04-21] MEDS: LEVOTHYROXINE 100 MCG TAB PO SCH (06:15)
--- NOTE | 2019-04-21 06:36 | PN ---
DATE: 04/20/2019 SUBJECTIVE: The patient seen, appears comfortable, complaining of slight groin pain in the right ins ertion site for the PCI. No hematomas noted. Bandage is in place. The patient also complaining of weakness, noted hypomagnesemia this morning. PHYSICAL EXAMINATION: VITAL SIGNS: Temperature 97.6, pulse 52, respirations 18, blood pressure 143/73, saturation 94%. GENERAL: No acute distress. The patient is obese, pale. CARDIOVASCULAR: S1, S2, regular rate. LUNGS: Clear. ABDOMEN: Soft. EXTREMITIES: No clubbing, cyanosis, or edema. Slight erythema in the pelvic folds. LABORATORY DATA: White count 6.7, hemoglobin 10.2, hematocrit 34, platelet counts of 146/70, 1 8%. Chemistry: Sodium is 138, potassium 4.1, , bicarbonate 24, BUN is 21, creatinine 1.17, gl ucose of 274. high at 353, magnesium was 1.4. MEDICATIONS: Reviewed: 1. Synthroid 200 mcg daily. 2. [place] p.r.n. 3. Lipitor 10 mg at bedtime. 4. Pepcid 40 mg at bedtime. 5. Trazodone 150 at bedtime. 6. Lantus 30 units q. daily. 7. Hypoglycemia protocol as directed. 8. Aspirin 81 daily. 9. Plavix 75 mg daily. 10. Cymbalta 60 mg daily. 11. Metoprolol tartrate 25 b.i.d. 12. Ditropan-XL 5 mg daily. 13. Topamax 100 daily. 14. Morphine sulfate p.r.n. ASSESSMENT AND PLAN: This is a 63-year-old morbidly obese female who has abdominal hernia, underwent a preop evaluation, was found to have a positive stress test, is now status post cardiac a ngiogram, status post percutaneous coronary intervention of left anterior descending. 1. Post-LAD stenting day #1. Physical therapy will be requested. Continue cardiac meds per Dr. Miguel zenia. Patient will be placed on DVT prophylaxis, GI prophylaxis, pain control. 2. Cardiovascular. Again, status post percutaneous coronary intervention of the left anterior desce nding. Continue cardiac management, statin, aspirin and Plavix. 3. Gastrointestinal. Continue Protonix for gastrointestinal prophylaxis. 4. Hypothyroidism, on Synthroid 200 mcg daily. 5. Insomnia, on trazodone. 6. Diabetes mellitus. Increase insulin Lantus to 40 units and add Aspart and NovoLog 10 units befor e meals. DISPOSITION: Tomorrow after patient is seen by physical therapy today. We will follow. Dictated By: NINI PRIEST/JENNY Conf#: [id number] DID#: [id number] CC: MCKENZIE CUEVA MD;*End*
[2019-04-21] MEDS: ASPIRIN (EC) 81 MG TAB PO SCH (08:14)
[2019-04-21] MEDS: DULOXETINE 30 MG CAP DR PO SCH (08:14)
[2019-04-21] MEDS: CLOPIDOGREL 75 MG TAB PO SCH (08:14)
[2019-04-21] MEDS: OXYBUTYNIN (XL) 5 MG TAB PO SCH (08:15)
[2019-04-21] MEDS: TOPIRAMATE 100 MG TAB PO SCH (08:15)
[2019-04-21] MEDS: METOPROLOL 25 MG TAB PO SCH ×2 (08:15→20:23)
[2019-04-21] MEDS: INSULIN ASPART [NOVOLOG] 3 ML PEN SC SCH ×7 (08:21→20:28)
--- NOTE | 2019-04-21 09:35 | CONS ---
Consult Date/Type/Reason Admit Date/Time Apr 20, 2019 at 14:55 Initial Consult Date Type of Consultation: cv Date/Time of Note DATE: 04/21/19 TIME: 09:33 Subjective Interventional cardiology follow-up progress note Subjective Case discussed with the staff telemetry was reviewed patient remains sinus rhythm intermittently with sinus bradycardia. No syncope presyncope No chest pain or pressure Mild groin discomfort/tenderness. She was able to walk though with no significant discomfort d/w Dr Rodriguez Objective: General: Obese female no acute distress HEENT: NC/AT. pupils are equal. round. NECK: NO JVD. no stridor. CV: RRR. systolic murmur; no gallop or rubs. PULM: no wheezing or rhonchi. GI: Obese NT, ND, no rebound or guarding Extremity: trace B/L LE edema. no clubbing. neuro: awake and alert, OX3. Psych: calm and pleasant rectal: deferred Vascular: Right femoral no bleeding or hematoma. No bruit. Objective Vitals Vital Signs Date Temp Pulse Resp B/P (MAP) Pulse Ox O2 O2 Flow FiO2 Time Delivery Rate 04/21/19 97.6 51 18 141/51 100 08:31 (81) 04/21/19 Nasal 2.0 08:00 Cannula Intake and Output 04/20/19 04/20/19 04/21/19 1515:00 23:00 07:00 IntakeIntake Total 300 ml 100 ml 500 ml BalanceBalance 300 ml 100 ml 500 ml Results/Medications Result Diagram: 04/21/19 0800 04/21/19 0800 Results 24 hrs Laboratory Tests Test 04/20/19 11:55 04/20/19 17:07 04/20/19 20:14 04/21/19 07:52 Bedside Glucose 353 H 305 H 207 239 H Test 04/21/19 08:00 White Blood Count 8.7 # Red Blood Count 4.46 Hemoglobin 12.7 Hematocrit 38.4 Mean Corpuscular Volume 86.1 Mean Corpuscular 28.5 L Hemoglobin Mean Corpuscular 33.1 Hemoglobin Concent Red Cell Distribution 13.2 Width Platelet Count 123 L Mean Platelet Volume 11.3 H Immature Granulocytes % 0.300 Neutrophils % 79.7 H Lymphocytes % 11.5 L Monocytes % 5.9 Eosinophils % 2.3 Basophils % 0.3 Nucleated Red Blood 0.0 Cells % Immature Granulocytes # 0.030 Neutrophils # 6.9 Lymphocytes # 1.0 Monocytes # 0.5 Eosinophils # 0.2 Basophils # 0.0 Nucleated Red Blood 0.0 Cells # Sodium Level 140 Potassium Level 5.0 Chloride Level 109 Carbon Dioxide Level 22 Anion Gap 9 Blood Urea Nitrogen 20 Creatinine 1.14 H Est Glomerular Filtrat 48 L Rate mL/min Glucose Level 226 H Calcium Level 8.9 Phosphorus Level 5.0 H Magnesium Level 2.2 Home Meds Reported Medications Clopidogrel Bisulfate (Clopidogrel) 75 Mg Tablet, 75 MG PO DAILY, #30 TAB 04/20/19 Duloxetine Hcl* (Cymbalta*) 60 Mg Capsule.dr, 60 MG PO DAILY, CAP 04/19/19 Metformin Hcl* (Metformin Hcl* ER) 500 Mg Tab.sr.24h, 500 MG PO BID, #30 TAB 04/19/19 Trazodone Hcl* (Desyrel*) 150 Mg Tablet, 150 MG PO QHS, #30 TAB 04/19/19 Topiramate* (Topiramate*) 100 Mg Tablet, 100 MG PO DAILY, TAB 04/19/19 Atorvastatin Calcium (Atorvastatin Calcium) 10 Mg Tablet, 10 MG PO QHS, #30 TAB 04/19/19 Levothyroxine Sodium* (Levoxyl*) 200 Mcg Tablet, 200 MCG PO BEFORE BREAKFAST, #30 TAB 04/19/19 Famotidine* (Famotidine*) 40 Mg Tablet, 40 MG PO HS, #30 TAB 04/19/19 Oxybutynin Chloride* (Ditropan* XL) 5 Mg Tabsr, 5 MG PO DAILY, TAB.SA 04/19/19 Metoprolol Tartrate* (Lopressor*) 25 Mg Tab, 25 MG PO BID, #60 TAB 04/19/19 Insulin Glargine,Hum.rec.anlog (Basaglar Kwikpen U-100) 100 Unit/1 Ml Insuln.pen, 0 SC DAILY, EA PT NOT SURE 04/19/19 Discontinued Reported Medications Famotidine* (Famotidine*) 40 Mg Tablet, 40 MG PO DAILY, #60 TAB 12/17/17 Aspirin Ec (Aspir 81) 81 Mg Tablet.dr, 81 MG PO DAILY, #30 TAB 12/17/17 Topiramate* (Topiramate*) 100 Mg Tablet, 100 MG PO QHS, TAB 10/15/15 Throat Lozenges* (Cepastat*) 9 Venancio Lozenge, 1 [place] MT Q4 PRN, LOZENGE 10/15/15 Insulin Aspart* (Novolog Insulin Pen*) 100 Unit/Ml Soln, 0 SC .SLIDING SCALE ACHS, EA 10/15/15 Magnesium Hydroxide* (Milk Of Magnesia*) 400 Mg/5 Ml Oral.susp, 30 ML PO Q24H PRN for CONSTIPATION, ML 10/15/15 Lidocaine 2% Jelly* (Xylocaine 2% Jelly*) 1 Applic Jel, 1 APPLIC TOP Q12, TUB 10/15/15 Levothyroxine Sodium* (Levothyroxine Sodium*) 300 Mcg Tablet, 300 MCG PO AC BREAKFAST, TAB 10/15/15 Insulin Glargine* (Lantus*) 100 Unit/Ml Soln, 32 UNIT SC HS, EA 07/31/14 Docusate Sodium* (Colace*) 100 Mg Capsule, 100 MG PO DAILY, CAP 07/31/14 Lorazepam* (Ativan*) 0.5 Mg Tablet, 0.5 MG PO Q8 PRN for ANXIETY, TAB 07/31/14 Acetaminophen* (Acetaminophen*) 650 Mg Tablet, 650 MG PO Q4H PRN for PAIN AND OR ELEVATED TEMP, TAB 07/31/14 Duloxetine Hcl* (Cymbalta*) 60 Mg Capsule.dr, 60 MG PO BID 03/27/14 Atorvastatin (Atorvastatin) 10 Mg Tablet, 10 MG PO DAILY, TAB 03/27/14 Folic Acid* (Folic Acid*) 1 Mg Tablet, 1 MG PO DAILY, TAB 03/27/14 Discontinued Scripts Phenazopyridine Hcl* (Pyridium*) 200 Mg Tab, 200 MG PO TID PRN for URINARY PAIN, #6 TAB Prov:DEANN JIMENEZ MD 02/19/19 Cephalexin* (Keflex*) 500 Mg Capsule, 500 MG PO QID for 5 Days, CAP Prov:DEANN JIMENEZ MD 02/19/19 Hydrocodone/Acetaminophen ([place] 5-325 Tablet) 1 Each Tablet, 1 EACH PO Q6, #14 TAB Prov:TIM MELARA DO 12/25/17 Tramadol HCl (Tramadol HCl) 50 Mg Tablet, 50 MG PO Q6 PRN for PAIN, #10 TAB Prov:JESSA ROWLAND MD 12/17/17 Ciprofloxacin Hcl* (Ciprofloxacin Hcl*) 500 Mg Tablet, 500 MG PO BID for 7 Days, TAB Prov:JESSA ROWLAND MD 12/17/17 Medications Current Medications Aspirin (Halfprin) 81 mg DAILY PO Last administered on 04/21/19 08:14; Admin Dose 81 MG; Start 04/19/19 at 09:00 Clopidogrel Bisulfate (plaVIX) 75 mg DAILY PO Last administered on 04/21/19 08:14; Admin Dose 75 MG; Start 04/19/19 at 09:00 Atorvastatin Calcium (Lipitor) 10 mg QHS PO Last administered on 04/20/19 20:16; Admin Dose 10 MG; Start 04/19/19 at 21:00 Duloxetine HCl (Cymbalta) 60 mg DAILY PO Last administered on 04/21/19 08:14; Admin Dose 60 MG; Start 04/19/19 at 09:00 Famotidine (Pepcid) 40 mg HS PO Last administered on 04/20/19 20:16; Admin Dose 40 MG; Start 04/19/19 at 21:00 Levothyroxine Sodium (Synthroid) 200 mcg BEFORE BREAKFAST PO Last administered on 04/21/19 06:15; Admin Dose 200 MCG; Start 04/20/19 at 07:00 Metoprolol Tartrate (Lopressor) 25 mg BID PO Last administered on 04/21/19 08:15; Admin Dose 25 MG; Start 04/19/19 at 09:00 Oxybutynin Chloride (Ditropan Xl) 5 mg DAILY PO Last administered on 04/21/19 08:15; Admin Dose 5 MG; Start 04/19/19 at 09:00 Topiramate (Topamax) 100 mg DAILY PO Last administered on 04/21/19 08:15; Admin Dose 100 MG; Start 04/19/19 at 09:00 Trazodone HCl (Desyrel) 150 mg QHS PO Last administered on 04/20/19 20:16; Admin Dose 150 MG; Start 04/19/19 at 21:00 Morphine Sulfate (morphine) 2 mg Q1H PRN IV SEVERE PAIN LEVEL 7-10 Last administered on 6/7/19at 06:15; Admin Dose 2 MG; Start 04/19/19 at 09:00 Insulin Aspart (Novolog Insulin Pen) NOVOLOG *MODERATE* ALGORITHM WITH MEALS BEDTIME SC Last administered on 04/21/19 08:21; Admin Dose 6 UNIT; Start 04/19/19 at 12:00 Miscellaneous Information 1 ea NOTE XX ; Start 04/19/19 at 09:30 Glucose (Glutose) 15 gm Q15M PRN PO DECREASED GLUCOSE; Start 04/19/19 at 09:30 Glucose (Glutose) 22.5 gm Q15M PRN PO DECREASED GLUCOSE; Start 04/19/19 at 09:30 Dextrose (D50w Syringe) 25 ml Q15M PRN IV DECREASED GLUCOSE; Start 04/19/19 at 09:30 Dextrose (D50w Syringe) 50 ml Q15M PRN IV DECREASED GLUCOSE; Start 04/19/19 at 09:30 Glucagon (Glucagen) 1 mg Q15M PRN IM DECREASED GLUCOSE; Start 04/19/19 at 09:30 Glucose (Glutose) 15 gm Q15M PRN BUCCAL DECREASED GLUCOSE; Start 04/19/19 at 09:30 Acetaminophen/ Hydrocodone Bitart ([place] (5/325)) 1 tab Q4H PRN PO MODERATE PAIN LEVEL 4-6 Last administered on 04/20/19at 04:49; Admin Dose 1 TAB; Start 04/20/19 at 00:30 Insulin Glargine (Lantus) 40 units DAILY@2000 SC Last administered on 04/20/19at 21:01; Admin Dose 40 UNITS; Start 04/20/19 at 20:00 Insulin Aspart (Novolog Insulin Pen) 10 unit WITH MEALS SC Last administered on 04/21/19at 08:21; Admin Dose 10 UNIT; Start 04/20/19 at 17:55 Assessment/Plan Hospital Course (Demo Recall) 1. Chest pain and coronary artery disease a marked abnormal stress test: Status post PCI of the LAD 04/19/2019 2. Hypertension 3. Diabetes 4. Dyslipidemia 5. Morbid obesity 6. Abdominal hernia cardiovascular preop evaluation 7. hypo Mg: replaced now Recommendation: Continue with aspirin and Plavix. Hold off on abdominal surgery noted the patient is on Plavix. Continue insulin for now. Metformin to resume tomorrow Renal function has improved. Beta-evelyn as tolerated. DC planning when okay with Dr. Rodriguez pt to follow up with me in office Thank you for his referral. MCKENZIE CUEVA MD [facility] MCKENZIE CUEVA MD Apr 21, 2019 09:35
[2019-04-21] MEDS: HYDROCODONE/APAP (5/325) TAB PO PRN (09:46)
--- NOTE | 2019-04-21 16:25 | PN ---
DATE: 04/21/2019 SUBJECTIVE: The patient was seen. Glucose level has improved but still in the 200s. The patient st ates that she is weak. She is concerned about going home and prefers ongoing with rehabilitation. T he patient has been seen by physical therapy who recommended discharge to post-acute rehab to h ome at this time. The patient does not have any more support at home with history of falls. We will defer this to the case management. PHYSICAL EXAMINATION: VITAL SIGNS: Temperature 97.9, pulse 44, respirations 20, blood pressure 119/49, oxygen saturation i s 97%. GENERAL: No acute distress. HEENT: Normocephalic, atraumatic, pale. CARDIOVASCULAR: S1, S2. Regular rate. LUNGS: Clear. ABDOMEN: Soft, obese. EXTREMITIES: No clubbing, cyanosis or edema. LABORATORY DATA: Today, white count is 8.7, hemoglobin 12.7, hematocrit 38, platelet count of 123, n eutrophils 80%, lymphocytes 12%. Chemistry: Sodium 140, potassium 5.0, chloride 109, bicarbonate 22 , BUN is 20, creatinine 1.14, glucose 226. Last glucose level of 246. The patient's hemoglobin A1c is 9.5, elevated. CURRENT MEDICATIONS: Include: 1. Lantus 40 units daily. 2. Insulin aspart 10 units with meals. 3. Synthroid 200 mcg daily. 4. [place] p.r.n. 5. Lipitor 10 mg at bedtime. 6. Pepcid 20 mg daily. 7. Trazodone 150 at bedtime. 8. Hypoglycemia protocol. 9. Aspirin 81 mg daily. 10. Plavix 75 mg daily. 11. Cymbalta 60 daily. 12. Lopressor 25 b.i.d. 13. Ditropan XL 5 mg daily. 14. Topamax 100 daily. 15. Morph[place] p.r.n. ASSESSMENT AND PLAN: This is a 63-year-old morbidly obese female with abdominal hernia, un derwent preoperative evaluation was found to have positive stress test, status post cardiac angiogram , status post PCI of LAD. 1. Post-LAD stenting day #2. Getting physical therapy, but otherwise weak. Refer to acute rehabili tation. Continue medical management per Dr. Martin which include Lipitor, aspirin, Plavix and metopr olol. 2. Abdominal hernia. Surgery will be deferred to a later time due to the above intervention. 3. Gastrointestinal: Continue Pepcid for gastrointestinal prophylaxis. 4. Hypothyroidism, on Synthroid 200 mcg daily. 5. Insomnia on trazodone. 6. Psychiatric disorder, on Cymbalta and trazodone. 7. Diabetes mellitus. We will titrate insulin further. We will increase Lantus to 50 units and Nov oLog to 14 units before meals. Continue to monitor. 8. Acute rehabilitation consultation requested. Dictated By: NINI PRIEST/NTS Conf#: [id number] DID#: [id number] CC: MCKENZIE MARTIN MD;*End*
[2019-04-21] MEDS: ATORVASTATIN 10 MG TAB PO SCH (20:22)
[2019-04-21] MEDS: traZODone 50 MG TAB PO SCH (20:22)
[2019-04-21] MEDS: FAMOTIDINE 20 MG TAB PO SCH (20:23)
[2019-04-21] MEDS: INSULIN GLARGINE [LANTus] (100 UNITS/ML) SYG SC SCH (20:49)
[2019-04-22] VITALS (12 sets, daily range): BP systolic 104–163; BP diastolic 47–76; PULSE 40–65; RESP 18–20
[2019-04-22] MEDS: morphine 2 MG INJ IV PRN ×4 (04:13→22:31)
[2019-04-22] MEDS: LEVOTHYROXINE 100 MCG TAB PO SCH (06:03)
[2019-04-22] MEDS ORDERED: POLYETHYLENE GLYCOL 17 GM PACKET PO PRN (06:30)
[2019-04-22] MEDS: INSULIN ASPART [NOVOLOG] 3 ML PEN SC SCH ×7 (07:52→22:20)
[2019-04-22] MEDS: CLOPIDOGREL 75 MG TAB PO SCH (08:07)
[2019-04-22] MEDS: TOPIRAMATE 100 MG TAB PO SCH (08:07)
[2019-04-22] MEDS: OXYBUTYNIN (XL) 5 MG TAB PO SCH (08:07)
[2019-04-22] MEDS: DULOXETINE 30 MG CAP DR PO SCH (08:07)
[2019-04-22] MEDS: ASPIRIN (EC) 81 MG TAB PO SCH (08:07)
[2019-04-22] MEDS: DOCUSATE SODIUM 100 MG CAP PO SCH ×2 (08:07→22:30)
[2019-04-22] MEDS: METOPROLOL 25 MG TAB PO SCH ×2 (08:08→21:00)
--- NOTE | 2019-04-22 14:00 | PDOCDIS ---
Discharge Instructions CONDITION [id number] Patient Condition: [id number] Stable ACTIVITY: [id number] Activity Restrictions: [id number] Slowly Increase Activity FOLLOW UP/APPOINTMENTS Follow-up Plan see reconciliacandice, NINI Moreau MD Apr 22, 2019 14:00
--- NOTE | 2019-04-22 20:13 | DS ---
DATE OF ADMISSION: 04/20/2019 DATE OF DISCHARGE: 04/22/2019 REASON FOR ADMISSION: Coronary artery disease, status post PCI of the LAD. HOSPITAL COURSE: The patient is a 63-year-old female with history of diabetes mellitus, at [facility], CKD, anemia, hypothyroidism, abdominal hernia, anxiety disorder, constipation, overacti ve bladder, insomnia, peripheral vascular disease, hyperuricemia, dyslipidemia, and osteoarthritis, w ho has been suffering with abdominal pain due to hernia. I was sent her to Dr. Martin for evaluation for preop clearance as the patient was found to have a positive stress test. Ultimately, she presen cuauhtemoc to [facility] for elective angiogram which showed 95% stenosis of the proximal portion of the mid LAD and mid LAD becomes very small. See report. Ultimately, the patient underwen t PCI of the LAD and admitted to the ICU. The patient was monitored. Postprocedure, complained of o verall weakness. The patient has difficulty also taking care of herself. She has steps at home. [facility]. Attempt to send her to [facility] rehabilitation was unsuccessful, so we will send her to the rehabilitation at [facility] with the following medications: 1. Aspirin 81 daily. 2. Lipitor 10 mg at bedtime. 3. Plavix 75 mg daily. 4. Colace 100 b.i.d. 5. Cymbalta 60 mg daily. 6. Pepcid 4 mg at bedtime. 7. Hypoglycemia protocol as directed. 8. [place] 5/325 q.4h. p.r.n. 9. Insulin aspart. We will make it to 14 units before breakfast, 14 units before lunch, and 10 units before dinner. 10. Lantus 50 units subcutaneous at bedtime. 11. Synthroid 200 mcg daily. 12. Lopressor 25 b.i.d. 13. Treatment of hypoglycemia. 14. Oxybutynin 5 mg b.i.d. 15. MiraLax 17 g daily. 15. Topamax 10 mg daily. 16. Trazodone 150 at bedtime. PLAN: Put her back on metformin 500 mg b.i.d. If sugars are high again, I will increase her insulin . The patient was discharged. FINAL DIAGNOSES: 1. Coronary artery disease, status post percutaneous coronary intervention of the left anterior desc ending. 2. Diabetes mellitus, difficult to control. 3. Hypothyroidism. 4. Morbid obese state. 5. Abdominal hernia. 6. Chronic kidney disease. 7. History of methicillin-resistant Staphylococcus aureus pneumoniae. 8. Atrial flutter. 9. Obese state. 10. Insomnia. 11. Overactive bladder. 12. Edwdc-zo-yydejft renal insufficiency. Kidney function improved. 13. Hypertension. 14. Hypomagnesemia. DIET: ADA 1800, 2-gram sodium. ACTIVITY: As tolerated with physical therapy. The patient will be discharged to [facility]. Dictated By: NINI PRIEST/NTS Conf#: [id number] DID#: [id number] CC: MCKENZIE MARTIN MD;*EndCC*
[2019-04-22] MEDS: FAMOTIDINE 20 MG TAB PO SCH (22:30)
[2019-04-22] MEDS: traZODone 50 MG TAB PO SCH (22:30)
[2019-04-22] MEDS: ATORVASTATIN 10 MG TAB PO SCH (22:31)
[2019-04-22] MEDS: INSULIN GLARGINE [LANTus] (100 UNITS/ML) SYG SC SCH (22:49)
[2019-04-23] VITALS (7 sets, daily range): BP systolic 122–138; BP diastolic 58–79; PULSE 36–52; RESP 16–20
[2019-04-23] MEDS: LEVOTHYROXINE 100 MCG TAB PO SCH (05:59)
[2019-04-23] MEDS: morphine 2 MG INJ IV PRN (06:00)
[2019-04-23] MEDS: INSULIN ASPART [NOVOLOG] 3 ML PEN SC SCH ×3 (07:57→11:57)
[2019-04-23] MEDS: OXYBUTYNIN (XL) 5 MG TAB PO SCH (08:07)
[2019-04-23] MEDS: TOPIRAMATE 100 MG TAB PO SCH (08:07)
[2019-04-23] MEDS: METOPROLOL 25 MG TAB PO SCH ×2 (08:08→08:12)
[2019-04-23] MEDS: DULOXETINE 30 MG CAP DR PO SCH (08:08)
[2019-04-23] MEDS: CLOPIDOGREL 75 MG TAB PO SCH (08:08)
[2019-04-23] MEDS: DOCUSATE SODIUM 100 MG CAP PO SCH (08:08)
[2019-04-23] MEDS: ASPIRIN (EC) 81 MG TAB PO SCH (08:08)
[2019-04-23] MEDS ORDERED: BISACODYL 10 MG SUPP PR ONE (10:30)
[2019-04-23] MEDS ORDERED: INSULIN ASPART [NOVOLOG] 3 ML PEN SC SCH (11:50)
[2019-04-23] MEDS: HYDROCODONE/APAP (5/325) TAB PO PRN (12:02)
--- NOTE | 2019-04-23 12:17 | PN ---
DATE: 04/23/2019 SUBJECTIVE: Patient is seen, awaiting placement. The patient complained of constipation, still weak , able to walk to the bathroom only. No episodes of bradycardia, we will hold beta blockers. PHYSICAL EXAMINATION: VITAL SIGNS: Temperature 97.5, pulse 82, respirations 17, blood pressure 122/60, saturation 95%. GENERAL: The patient is in no acute distress, pale. CARDIOVASCULAR: S1, S2, regular rate. LUNGS: Clear. ABDOMEN: Soft, nontender. EXTREMITIES: No clubbing, cyanosis, or edema. LABORATORY DATA: White count 8.7, hemoglobin 12.7, hematocrit 38, platelet count 122. This was 2 da ys ago. Last glucose level 155, 132 and 96, so much improved. MEDICATIONS: 1. Colace 100 b.i.d. 2. MiraLax 17 grams as directed. 3. Lantus 50 units daily at night. 4. Insulin aspart 14 units before meals. Will decrease it to 12. 5. ____ 200 mcg as directed. 6. [place] p.r.n. 7. Lipitor 10 mg at bedtime. 8. Pepcid 40 every evening. 9. ____150 at bedtime. 10. Hypoglycemia protocol. 11. Aspirin 81 mg daily. 12. Plavix 75 mg daily. 13. Cymbalta 60 mg daily. 14. Lopressor 25 b.i.d. 15. Ditropan 16. Topamax as directed. 17. Noted again above bradycardia. ASSESSMENT AND PLAN: This is a 63-year-old morbidly obese female with history of abdominal hernia, underwent preoperative evaluation and was found to have positive stress test and then underw ent PCI of the LAD. 1. Status post LAD stenting, post-procedure day 3. Continue physical therapy, noted bradycardia. H old beta blockers. 2. Abdominal hernia surgery to be deferred. This patient remains on Plavix. 3. Gastrointestinal. Continue Pepcid for gastrointestinal prophylaxis. 4. Hypothyroidism. Continue Synthroid. 5. Constipation. Enema x1 will be given. Continue regular stool softeners. 6. Psychiatric disorder. Resume Cymbalta and ____. 7. Generalized weakness, referred to a [facility]dc facility. 8. Diabetes mellitus. Continue Lantus 50 units at night and lower the NovoLog to 12 units before me als. 9. Overactive bladder. Continue Ditropan. We will increase dose to b.i.d. dosing. 10. Case discussed with pillowcase turner regarding discharge planning. Will follow. Dictated By: NINI PRIEST/JENNY Conf#: [id number] DID#: [id number] CC: MCKENZIE CUEVA MD;*EndCC*
--- NOTE | 2019-04-23 15:30 | RADRPT ---
Vent Rate: 48 bpm RR Interval: 1244 msec AL Interval: 163 msec QRS Duration: 140 msec QT Interval: 474 msec QTC Interval: 425 msec P-R-T [place]: 33 - -29 - -29 degrees Sinus bradycardia...rate< 50 Right bundle branch block...QRSd>120, terminal axis(90,270) Left ventricular hypertrophy...multiple LVH criteria Lateral infarct, recent...Q>35, ST>.05, T neg, V5-V6 I aVL Electronically Signed By: Jose Enrique Mcgrath
[2019-04-23] MEDS ORDERED: OXYBUTYNIN (XL) 5 MG TAB PO SCH (21:00)
== END 2019-04-23 15:37 | DRG 247 ==
LOC: SDS 05:41 → REC 08:52 → TEL 18:45 → OBSVTOIN 04-20 14:55
PROVIDERS: ADMIT Internal Medicine Interventional Cardiology; ATTEND Internal Medicine Interventional Cardiology
PROC: B211YZZ Fluoroscopy of Multiple Coronary Arteries using Other Contrast (ICD-10-PCS; 2019-04-19)
PROC: 027035Z Dilation of Coronary Artery, One Artery with Two Drug-eluting Intraluminal Devices, Percutaneous Approach (ICD-10-PCS; principal; 2019-04-19 07:30)
PROC: 4A023N7 Measurement of Cardiac Sampling and Pressure, Left Heart, Percutaneous Approach (ICD-10-PCS; 2019-04-19 07:30)
DX: I25.119 Atherosclerotic heart disease of native coronary artery with unspecified angina pectoris (principal); I48.92 Unspecified atrial flutter; N17.9 Acute kidney failure, unspecified; E11.22 Type 2 diabetes mellitus with diabetic chronic kidney disease; N18.9 Chronic kidney disease, unspecified; D63.1 Anemia in chronic kidney disease; E03.9 Hypothyroidism, unspecified; F41.8 Other specified anxiety disorders; E11.51 Type 2 diabetes mellitus with diabetic peripheral angiopathy without gangrene; E78.5 Hyperlipidemia, unspecified; K46.9 Unspecified abdominal hernia without obstruction or gangrene; E66.01 Morbid (severe) obesity due to excess calories; Z68.36 Body mass index [BMI] 36.0-36.9, adult; G47.00 Insomnia, unspecified; F99 Mental disorder, not otherwise specified; I12.9 Hypertensive chronic kidney disease with stage 1 through stage 4 chronic kidney disease, or unspecified chronic kidney disease; Z86.14 Personal history of Methicillin resistant Staphylococcus aureus infection; N32.81 Overactive bladder; E83.42 Hypomagnesemia
CPT/HCPCS: 80048; 80053; 80061; 82550; 82553; 82962; 83036; 83735; 84100; 84484; 85025; 85610; 85730; 93005; 93458; 97162; G0378; C1725; C1760; C1874; C1887; C1894; C9600; J0583; J1644; J1815; J2250; J2270; J3010; Q9967